=== PATIENT | male | born 2000 | race Caucasian/White ===

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

== ENCOUNTER 2019-04-13 10:11 | Emergency (ER) | payer OTHER ==
[~2019-04-13] VITALS: Ht 180.3 cm; Wt 70.5 kg
[~2019-04-13 10:11] MED LIST: PROT1TAB2 PO; ZOFR4TAB14 PO
[2019-04-13] MEDS ORDERED: NS 1,000 ML IV ONE (11:00)
[2019-04-13 11:28] LABS: EOS # 0.1 10^3/uL (0.0-0.50); EOS % 1.4 % (0.0-3.0); HEMOGLOBIN 14.7 g/dl (13.5-17.5); LYMPH # 2.1 10^3/uL (1.5-6.5); LYMPH % 26.9 % (24.0-44.0); MEAN CORPUSCULAR HEMOGLOBIN 28.8 pg (27.0-33.0); MEAN CORPUSCULAR HGB CONC 34.2 g/dl (32.0-36.5); MEAN CORPUSCULAR VOLUME 84.3 fl (80.0-96.0); MONO # 0.4 10^3/uL (0.0-0.8); MONO % 5.6 % (0.0-5.0); NEUTROPHILS # 5.1 10^3/uL (1.8-7.7); NEUTROPHILS % 65.8 % (36.0-66.0); PLATELET COUNT, AUTOMATED 222 10^3/uL (150-450); WHITE BLOOD COUNT 7.7 10^3/uL (4.0-10.0)
[2019-04-13 11:53] LABS: ALBUMIN 4.3 GM/DL (3.2-5.2); ALT/SGPT 18 U/L (12-78); BILIRUBIN,DIRECT 0.1 MG/DL (0.0-0.2); BILIRUBIN,TOTAL 0.4 MG/DL (0.2-1.0); BLOOD UREA NITROGEN 16 MG/DL (7-18); CALCIUM LEVEL 9.1 MG/DL (8.5-10.1); CARBON DIOXIDE LEVEL 28 MEQ/L (21-32); CHLORIDE LEVEL 107 MEQ/L (98-107); CREATININE FOR GFR 1.06 MG/DL (0.70-1.30); GLUCOSE, FASTING 99 MG/DL (70-100); LIPASE 106 U/L (73-393); POTASSIUM SERUM 4.3 MEQ/L (3.5-5.1); SODIUM LEVEL 139 MEQ/L (136-145); TOTAL PROTEIN 7.7 GM/DL (6.4-8.2)
[2019-04-13] MEDS ORDERED: ISOVUE-370 76% 100ML VIAL (Q9967) As Ordered ONE (12:09)
--- NOTE | 2019-04-13 13:00 | REP ---
CT of the abdomen and pelvis with IV contrast, without bowel contrast: There are no comparisons. The visualized lung mahan are unremarkable. The hepatic parenchyma is unremarkable. There are multiple small gallbladder calculi. There is no gallbladder wall thickening or pericholecystic fluid. There is no intrahepatic or extrahepatic biliary duct dilatation. The pancreas, spleen, adrenals, kidneys, and abdominal aorta are. There is no retroperitoneal adenopathy or mass. There is minimal body fat tissue planes. There is no bowel distension or obstruction. Pelvis: The appendix is mildly distended measuring up to 11 mm transverse diameter. However, there is no appendiceal phlegmon or abscess. There is no pelvic adenopathy or ascites. There is mild wall thickening of the sigmoid colon. This may be artifact from incomplete sigmoid colon distension, or could represent colitis in the appropriate clinical setting. There is a small volume of ascites in the midline of the pelvis posteriorly. The bladder is unremarkable. Impression: The appendix is mildly distended measuring up to 11 mm transverse diameter, however, there is no periappendiceal phlegmon or abscess. There is a small volume of ascites in the pelvis. There is mild thickening of the sigmoid colon, nonspecific, secondary to incomplete sigmoid distension versus colitis in the appropriate clinical setting. Electronically Signed by Saman Toledo MD 04/13/2019 12:52 P
[2019-04-13] MEDS ORDERED: CIPR-249 PO (14:16)
[2019-04-13] MEDS ORDERED: FLAG500T PO (14:16)
[2019-04-13 14:30] VITALS: BP 120/62
== END 2019-04-13 14:46 | disposition home or self-care (01) ==
LOC: M ED 10:11
DX: K52.9 Noninfective gastroenteritis and colitis, unspecified (principal); K35.20 Acute appendicitis with generalized peritonitis, without abscess; R18.8 Other ascites; R10.84 Generalized abdominal pain; R19.7 Diarrhea, unspecified; K21.9 Gastro-esophageal reflux disease without esophagitis; Z79.899 Other long term (current) drug therapy
CPT/HCPCS: 74177; 80048; 80076; 81001; 83690; 85025; 87507; 96360; 96361; 99284; Q9967

== ENCOUNTER 2019-09-03 12:22 | Emergency (ER) | payer OTHER ==
[~2019-09-03] VITALS: Ht 180.3 cm; Wt 70.5 kg
[~2019-09-03 12:22] MED LIST changes: +CIPR-249 PO; +FLAG500T PO
[2019-09-03] MEDS ORDERED: IBUP-1022 PO (12:42)
[2019-09-03 14:18] LABS: BASO % 0.2 % (0.0-1.0); EOS # 0.1 10^3/uL (0.0-0.5); HEMATOCRIT 43.5 % (42.0-52.0); HEMOGLOBIN 14.5 g/dl (13.5-17.5); LYMPH # 3.2 10^3/uL (1.5-5.0); LYMPH % 49.2 % (24.0-44.0); MEAN CORPUSCULAR HEMOGLOBIN 28.6 pg (27.0-33.0); MEAN CORPUSCULAR HGB CONC 33.3 g/dl (32.0-36.5); MEAN CORPUSCULAR VOLUME 85.8 fl (80.0-96.0); MONO # 0.4 10^3/uL (0.0-0.8); MONO % 6.2 % (0.0-5.0); NEUTROPHILS # 2.7 10^3/uL (1.5-8.5); NEUTROPHILS % 42.1 % (36.0-66.0); PLATELET COUNT, AUTOMATED 211 10^3/uL (150-450); RED BLOOD COUNT 5.07 10^6/uL (4.30-6.10); WHITE BLOOD COUNT 6.5 10^3/uL (4.0-10.0)
[2019-09-03 14:30] LABS: INR 1.14; PARTIAL THROMBOPLASTIN TIME 32.3 SECONDS (25.0-38.4); PROTHROMBIN TIME 14.3 SECONDS (11.8-14.0)
--- NOTE | 2019-09-03 14:34 | REP ---
RIGHT UPPER EXTREMITY DOPPLER VENOUS ULTRASOUND: 09/03/2019. CLINICAL HISTORY: Firm region to right upper arm. Evaluate for thrombus. FINDINGS: No prior study. Standard duplex techniques were utilized. The jugular and subclavian veins show color filling their lumen with respiratory variation. There is no thrombus. Axillary vein was patent and without filling defects and with normal Doppler tracing. It is fully compressible. The paired brachial veins show full compressibility throughout the upper arm to the antecubital fossa. In the superficial venous system, the right basilic vein shows full compressibility and color flow throughout its course. However, in the mid cephalic vein, there is a zone of occlusive thrombus. Remainder of the cephalic vein is patent. IMPRESSION: 1. There is evidence of superficial thrombophlebitis in the right cephalic vein which is part of the superficial venous system of the upper extremity. There is a segment of occlusive thrombus in the mid course of the cephalic vein. 2. There is no evidence of deep vein thrombosis in the deep venous system, as described above. Electronically Signed by Jasbir Recinos MD 09/03/2019 07:58 P
[2019-09-03 14:40] LABS: ALBUMIN 4.3 GM/DL (3.2-5.2); ALT/SGPT 23 U/L (12-78); BILIRUBIN,TOTAL 0.4 MG/DL (0.2-1.0); BLOOD UREA NITROGEN 16 MG/DL (7-18); CARBON DIOXIDE LEVEL 29 MEQ/L (21-32); CHLORIDE LEVEL 107 MEQ/L (98-107); GLUCOSE, FASTING 86 MG/DL (70-100); SODIUM LEVEL 142 MEQ/L (136-145); TOTAL PROTEIN 7.5 GM/DL (6.4-8.2)
[2019-09-03] MEDS ORDERED: ISOVUE-370 76% 100ML VIAL (Q9967) As Ordered ONE (15:03)
[2019-09-03] MEDS ORDERED: IBUP80TA PO (16:18)
[2019-09-03 16:26] VITALS: BP 118/55
--- NOTE | 2019-09-04 07:39 | REP ---
CT ANGIOGRAM CHEST: 09/03/2019. CLINICAL HISTORY: Dyspnea, right upper extremity superficial thrombophlebitis. TECHNIQUE: Bolus of 75 mL [id number], scanning through the chest with our pulmonary angiogram protocol and with both coronal and sagittal standard and MIP reformats. FINDINGS: The lung mahan are well inflated. There is no pulmonary nodule, mass, infiltrate, effusion, pleural thickening, or atelectasis. I see no calcified or other pleural plaque or pneumothorax. No pneumomediastinum. Heart is not enlarged. There is no pericardial thickening or effusion. The aorta is without aneurysm or dissection. The main, right, and left pulmonary arteries are without filling defects. The lobar, segmental, and subsegmental pulmonary arteries are all unremarkable. There is no pathologic sized mediastinal, hilar, axillary, or supraclavicular adenopathy. Thymic remnant in the superior mediastinum is a normal finding. No mass. Bone windows show the sternum, manubrium, medial clavicles, the scapulae, visualized humeral heads, ribs, and thoracic spine are all unremarkable. Upper abdomen included in this field of view shows no hepatic or splenic lesion, biliary dilatation, or mass. Only a portion of the pancreas is seen, and the gallbladder excluded. Upper poles kidneys are unremarkable. IMPRESSION: 1. Negative CT pulmonary angiogram. No evidence of pulmonary emboli, parenchymal lung abnormality, or other acute finding. Electronically Signed by Jasbir Recinos MD 09/04/2019 08:10 A
== END 2019-09-03 16:29 | disposition home or self-care (01) ==
LOC: M ED 12:22
DX: I82.611 Acute embolism and thrombosis of superficial veins of right upper extremity (principal); R06.02 Shortness of breath; F17.290 Nicotine dependence, other tobacco product, uncomplicated; Z79.1 Long term (current) use of non-steroidal anti-inflammatories (NSAID); Z83.2 Family history of diseases of the blood and blood-forming organs and certain disorders involving the immune mechanism
CPT/HCPCS: 71275; 80053; 85025; 85610; 85730; 93971; 99283; Q9967